=== PATIENT | female | born 1980 | race Two or more races ===

== ENCOUNTER 2016-10-16 11:23 | Emergency (ER) | payer OTHER ==
[~2016-10-16] VITALS: Ht 152.4 cm; Wt 56.2 kg
[2016-10-16 11:23] VITALS: BP 114/75
== END 2016-10-16 12:21 | disposition home or self-care (01) ==
LOC: ER 11:25
DX: H92.01 Otalgia, right ear (principal)
CPT/HCPCS: 99283; A4606; Z7610